=== PATIENT | male | born 1975 | race Hispanic/Latino ===

== ENCOUNTER 2019-03-22 09:43 | Inpatient (IN) | payer SELFPAY ==
[~2019-03-22] VITALS: Ht 170.2 cm; Wt 87.3 kg
[2019-03-22] VITALS (9 sets, daily range): BP systolic 106–148; BP diastolic 66–112
[2019-03-22] MEDS ORDERED: HEPARIN SODIUM 1000UNIT/ML 10ML VIAL ONE (10:53)
[2019-03-22] MEDS ORDERED: IOHEXOL 350 MG/ML 100ML INFUS..BTL IV ONE ×2 (10:53→10:57)
[2019-03-22] MEDS ORDERED: IOHEXOL-350 50ML VIAL IV ONE (10:53)
[2019-03-22] MEDS ORDERED: LIDOCAINE HCL 2% 20ML ONE (10:53)
--- NOTE | 2019-03-22 12:28 | NUR ---
ARRIVAL TO FLOOR PT IS AAOX4 DENIES CP DENIES SOB DENIES NV NO COMPLAINTS. RIGHT GROIN WITH 6FR SHEATH SUTURED IN PLACE. BEDREST IN PROGRESS. TELE PACK PLACED VS IN PROGRESS. CALL LIGHT WITHIN REACH.
--- NOTE | 2019-03-22 12:45 | NUR ---
Jessica HOFF PONY ROUGHER AWARE OF PATIENT ARRIVAL TO FLOOR ADMIT ORDERS TO DR AVILA
--- NOTE | 2019-03-22 15:00 | NUR ---
REMOVAL OF 6FR SHEATH RIGHT GROIN PRESSURE HELD X20 MINS, D STAT USED MANUAL PRESSURE HOLD. DRESSING APPLIED, BEDREST ENFORCED X6 MORE HOURS. AWARE AND AGREES.
--- NOTE | 2019-03-22 16:00 | NUR ---
RIGHT GROINS STATUS REMAINS SOFT, WNL. NO OOZING NO HEMATOMA NOTED. NO COMPLAINTS. BEDREST IN PROGRESS. DRESSING INTACT.
--- NOTE | 2019-03-22 17:00 | NUR ---
RIGHT GROIN REMAINS WNL BEDREST IN PROGRESS
--- NOTE | 2019-03-22 18:00 | NUR ---
RIGHT GROIN REMAINS WNL BEDREST IN PROGRESS
[2019-03-22 18:29] LABS: AMPHET/METH SCREEN,URINE NEGATIVE (NEGATIVE); BARBITURATE SCREEN, URINE NEGATIVE (NEGATIVE); BENZODIAZEPINES SCREEN,URINE NEGATIVE (NEGATIVE); CANNABINOID SCREEN,URINE NEGATIVE (NEGATIVE); COCAINE SCREEN,URINE NEGATIVE (NEGATIVE); OPIATE SCREEN,URINE NEGATIVE (NEGATIVE); PHENCYCLIDINE SCREEN,URINE NEGATIVE (NEGATIVE)
[2019-03-23 00:15] VITALS: BP 146/71
[2019-03-23 03:40] VITALS: BP 138/85
[2019-03-23 07:38] VITALS: BP 141/91
--- NOTE | 2019-03-23 08:00 | NUR ---
AM ASSESSMENT PT LAYING IN BED, HOB ELEVATED 30 DEGREES, RESTING. A/O X 3. NO SOB. NO DISTRESS NOTED. DENIES CHEST PAIN OR DISCOMFORT. DENIES PALPITATIONS. DENIES INCISIONAL PAIN. TELE: SR 60s. DENIES N/V AND/OR DIARRHEA. RT GROIN SOFT, NON-TENDER. PUNCTURE SITE WELL APPROX. NO BLEEDING, NO HEMATOMA NOTED. (+) BILATERAL PEDAL PULSES. BLE PINK & WARM TO TOUCH. UP AD ONEIL. INSTRUCTED TO CALL FOR ASSISTANCE. CALL ALECIA W/IN REACH.
[2019-03-23] MEDS ORDERED: ASPIRIN 81MG TAB.CHEW PO SCH (09:00)
[2019-03-23] MEDS ORDERED: CLOPIDOGREL BISULFATE 75 MG TAB PO SCH (09:00)
[2019-03-23] MEDS ORDERED: CARVEDILOL 3.125 MG TABLET PO SCH (09:00)
--- NOTE | 2019-03-23 09:52 | NUR ---
DCP Sw met with pt who lives alone, works construction, independent of all ADLS, no DME or in home care services. Friends Jose Lucas [phone] and Cristiano Patel [phone] are pt's ER contacts and support. Plan is home at [place], pt denies any dc needs
[2019-03-23] MEDS ORDERED: ASPI-555 PO (10:57)
[2019-03-23] MEDS ORDERED: CARV3.1262 PO (10:57)
[2019-03-23] MEDS ORDERED: CLOP75TA14 PO (10:57)
--- NOTE | 2019-03-23 11:10 | NUR ---
DISCHARGE VERBAL & WRITTEN DISCHARGE INSTRUCTIONS REVIEWED & GIVEN TO PT IN [place]. QUESTIONS ENCOURAGED & CLARIFIED. PROPER CARE & ACTIVITY AFTER [facility] REVIEWED. NEW PRESCRIBED MEDICATIONS REVIEWED. PRESCRIPTION GIVEN TO PT, SIGNED COPY PLACED IN CHART. IV X 2 DISCONTINUED. TELE BHAKTI REMOVED. PT & FRIEND TO GATHER PERSONAL BELONGINGS. WILL NOTIFY STAFF WHEN READY TO BE TAKEN TO PRIVATE VEHICLE.
--- NOTE | 2019-03-23 11:25 | NUR ---
DISCHARGE PT AMBULATED TO PRIVATE VEHICLE ACCOMPANIED BY MYSELF, Emil POSADA RN. TOLERATED WELL. FRIEND AWAITING IN PRIVATE VEHICLE.
[2019-03-23 11:28] VITALS: BP 133/97
== END 2019-03-23 11:25 | disposition home or self-care (01) | DRG 281 ==
LOC: 2AH 10:54
PROVIDERS: ADMIT Internal Medicine Pulmonary Disease; ATTEND Internal Medicine Pulmonary Disease
PROC: 4A023N7 Measurement of Cardiac Sampling and Pressure, Left Heart, Percutaneous Approach (ICD-10-PCS; principal; 2019-03-22)
PROC: B2111ZZ Fluoroscopy of Multiple Coronary Arteries using Low Osmolar Contrast (ICD-10-PCS; 2019-03-22)
PROC: B2151ZZ Fluoroscopy of Left Heart using Low Osmolar Contrast (ICD-10-PCS; 2019-03-22)
DX: I21.3 ST elevation (STEMI) myocardial infarction of unspecified site (principal); I42.9 Cardiomyopathy, unspecified; I25.10 Atherosclerotic heart disease of native coronary artery without angina pectoris; I73.9 Peripheral vascular disease, unspecified; I11.9 Hypertensive heart disease without heart failure
CPT/HCPCS: 36415; 80305; 84132; 85730; 93306; 93458; C1894; G0378; J1644; J3490; Q9967